=== PATIENT | male | born 2000 | race Two or more races ===

== ENCOUNTER 2024-10-04 16:39 | Emergency (ER) | payer SELFPAY ==
[2024-10-04 16:40] VITALS: BMI 34.4
[2024-10-04 16:54] VITALS: BP 164/98; PULSE 135; RESP 17; TEMP 37.8; O2SAT 96
--- NOTE | 2024-10-04 16:55 | EDNOTE_ITS ---
ED Dizzyness RME/HPI General Chief Complaint: Dizziness Stated Complaint: DIZZINESS, SHAKING, VOMITING Time Seen by Provider: 10/04/24 16:50 Arrival date/time: 10/04/24 16:39 RME / HPI RME / HPI Narrative: DR. ROMERO MAIN ED EVALUATION: 23-year-old male with a past medical history of diabetes mellitus and hypercholesterolemia presents to the Emergency Department accompanied by his mother after becoming dizzy and nauseated while working outside in the sun in the [place]. He had not eaten all day but reports drinking water. Patient states he was not given a break by his employer. Denies chest pain and abdominal pain. Reports some mild trouble breathing. On arrival, he was noted to be tachycardic, dyspneic, and febrile. Related Data Allergies Allergy/AdvReac Type Severity Reaction Status Date / Time No Known Allergies Allergy Verified 10/04/24 16:40 Review of Systems Review of Systems Systems Reviewed: All systems reviewed, normal except as documented Past Medical History Social History SMOKING STATUS: Never smoker SUBSTANCE USE: does not use ALCOHOL: Never Past Medical History Comments PMH COMMENT: diabetes mellitus and hypercholesterolemia ED Exam Narrative Physical exam: Constitutional: Awake, alert, nontoxic, diaphoretic, febrile at 101 orally HEENT: NC, AT, EOMI Neck: Supple CV: tachycardic Lungs: CTAB, no w/r/r, no respiratory distress. Abd: Soft, NT, NT, no HSM noted to palpation Extremities: No deformities, no edema noted Neuro: AAOx3, CN 2-12 GIBL, no acute neuro deficit noted. Skin: Warm, dry, intact Course Course Course Narrative: Patient coming in with what appears to be dehydration and heat exposure. IV fluids ordered as well as labs. Labs reviewed with mild elevation of LFTs as well as CPK. Will sign out patient to Dr. Sen pending completion of fluids and reevaluation as patient was tachycardic in the 130s on arrival. Likely able to discharge home afterwards. Quality Measures none Orders Category Date Time Status Insert IV NOW Care 10/04/24 16:53 Active CBC Stat Lab 10/04/24 17:05 Completed CK [Creatine Kinase] Stat Lab 10/04/24 17:05 Completed CMP [Comprehensive Metabolic Panel] Stat Lab 10/04/24 17:05 Completed Lactate (Lactic Acid) Stat Lab 10/04/24 17:05 Completed Magnesium Stat Lab 10/04/24 17:05 Completed Ondansetron Inj [Zofran Inj] Med 10/04/24 16:54 Discontinued 4 mg IVP X1 ONE Ringers Lactated 1000 ml [Lactated Ringers] 1,000 ml Med 10/04/24 16:53 Discontinued IV 999 mls/hr Ringers Lactated 1000 ml [Lactated Ringers] 1,000 ml Med 10/04/24 17:44 Discontinued IV 999 mls/hr Vital Signs Vital signs: Vital Signs Temperature 100.1 F 10/04/24 16:54 Pulse Rate 135 H 10/04/24 16:54 Respiratory Rate 17 10/04/24 16:54 Blood Pressure 164/98 H 10/04/24 16:54 Pulse Oximetry (%) 96 10/04/24 16:54 Oxygen Delivery Method Room Air 10/04/24 16:54 Dizziness MDM Narrative MDM Narrative:: IKaya am scribing for and in the presence of Dr. Romero. Patient data External records reviewed:: [facility] previous records Clinical information provided by:: patient and family Social determinants that could affect healthcare access:: none Patient has the following chronic illnesses:: diabetes mellitus and hypercholesterolemia How is presenting disease/condition affected by chronic disease/condition?: uneffected by Evaluation data The following diagnostics were reviewed and interpreted by me:: lab results Lab and/or radiology exams considered but not ordered:: none Interpretation Summary: See narrative above. Medications / Prescriptions Medications or Prescriptions considered but not ordered:: none Medication administrations:: Medication Administration History Discontinued Medications Lactated Ringer's (Lactated Ringers) 1,000 mls @ 999 mls/hr IV .Q1H1M ONE Stop: 10/04/24 17:53 Last Infusion: 10/04/24 18:25 Dose: Infused Documented By: Admin: 10/04/24 17:08 Dose: 999 mls/hr Documented By: LARS Lactated Ringer's (Lactated Ringers) 1,000 mls @ 999 mls/hr IV .Q1H1M ONE Stop: 10/04/24 18:44 Last Admin: 10/04/24 17:50 Dose: 999 mls/hr Documented By: LARS Ondansetron HCl (Ondansetron Inj 2 Mg/Ml Inj 2 Ml) 4 mg IVP X1 ONE; Protocol Stop: 10/04/24 16:55 Last Admin: 10/04/24 17:07 Dose: 4 mg Documented By: LARS see above Consultations Consultation(s) initiated? (list below): No Diagnosis Dizziness Differential Diagnosis: other (Heat exhaustion, hypoglycemia, and dehydration.) Most likely diagnosis given after review of the tests above:: Dehydration Heat exposure Admission Indicated Admission indicated?: not indicated Admission Request Was there a request for admission?: No Disposition Plan Disposition Plan: Discharge Discharge Attestation Discharge Attestation: The patient and all family members were given an opportunity to ask questions and understood the discharge instructions. Discharge instructions specifically effects, indications for sooner follow up or return to the emergency department, and the expected course of current diagnosis. Patient condition: Stable Discharge Plan Problem List Clinical Impression: Dehydration, Sinus tachycardia Patient/Caregiver Discharge Instructions Print Language: Azeri
[2024-10-04] MEDS: ONDANSETRON INJ 2 MG/ML INJ 2 ML 4 MG IVP (17:07)
[2024-10-04] MEDS: RINGERS LACTATED 1000 ML 1,000 ML 999 ML IV ×2 (17:08→17:50)
[2024-10-04 17:18] LABS: Basophils # (Auto) 0.0 Thou/mm3 (0.0-0.2); Basophils % (Auto) 0 % (0-2.5); Eosinophils # (Auto) 0.0 Thou/mm3 (0.0-0.5); Eosinophils % (Auto) 0 % (0-10); Hematocrit 44.6 % (41.0-53.0); Hemoglobin 15.6 g/dL (13.5-16.0); Immature Granulocytes Auto 0.04 Thou/mm3 (0.00-0.00); Lactate (Lactic Acid) 1.3 mMol/L (0.4-2.0); Lymphocytes # (Auto) 1.7 Thou/mm3 (1.0-4.8); Lymphocytes % (Auto) 16 % (10-50); Mean Corpuscular HGB Conc 35.0 g/dl (31.0-37.0); Mean Corpuscular Hemoglobin 29.3 pg (25.0-35.0); Mean Corpuscular Volume 84 fL (80-100); Monocytes # (Auto) 0.8 Thou/mm3 (0.0-0.8); Monocytes % (Auto) 7 % (0-12); Neutrophils # (Auto) 8.4 Thou/mm3 (1.8-7.7); Neutrophils % (Auto) 76 % (37-80); Nucleated Red Blood Cell # 0.00 Thou/mm3 (0.00-0.00); Nucleated Red Blood Cell % 0 /100 WBC (0); Platelet Count 299 Thou/mm3 (140-440); RDW Standard Deviation 36.1 fL (35.1-43.9); Red Blood Count 5.33 Miln/mm3 (4.50-5.90); White Blood Count 11.0 Thou/mm3 (3.8-10.6)
[2024-10-04 17:39] LABS: Alanine Aminotransferase 141 U/L (10-49); Albumin, Serum 5.3 gm/dL (3.5-5.0); Albumin/Globulin Ratio 2.0 (1.2-2.2); Alkaline Phosphatase 119 U/L (46-116); Anion Gap 15 (7-16); Aspartate Amino Transferase 76 U/L (0-34); BUN/Creatinine Ratio 10 Ratio (12-20); Bilirubin,Total 0.9 mg/dL (0.3-1.2); Blood Urea Nitrogen 12 mg/dL (9-23); Calcium 10.1 mg/dL (8.3-10.6); Calcium (Corrected) 10.1 mg/dL (8.5-10.1); Carbon Dioxide 20.9 mMol/L (20.0-31.0); Chloride 108 mMol/L (98-107); Creatine Kinase 256 U/L (34-171); Creatinine (Component) 1.2 mg/dL (0.6-1.3); Estimated Creatinine Clearance 120.3 mL/min (>60); Globulin 2.6 gm/dL (2.3-3.5); Glucose 102 mg/dL (74-106); Magnesium 2.0 mg/dL (1.6-2.6); Osmolality,Calculated 286 (275-295); Potassium 3.4 mMol/L (3.4-5.1); Sodium 144 mMol/L (136-145); Total Protein 7.9 gm/dL (5.7-8.2); eGFR > 60 See Note
[2024-10-04 18:33] VITALS: BP 129/67; PULSE 96; RESP 18; TEMP 36.6; O2SAT 99
[2024-10-04 19:00] VITALS: BP 136/75; PULSE 92; RESP 18; TEMP 37; O2SAT 99
--- NOTE | 2024-10-04 19:14 | PD.EDADDENDU ---
Emergency Room Addendum <Angelique Duff - Last Filed: 10/04/24 19:14> Addendum Narrative: 1800: Care assumed from Dr. Argueta (emergency physician). Past medical, surgical, social and family history reviewed. Vitals and home medications reviewed. Results and treatment plan discussed. I will assume the care of the patient at this time and will follow the patient, pending . The following addendum documentation note is intended to reflect any pending information, findings, or radiology results not included in the patient?s initial chart by the previous shift scribe. <Arian Heaton SenDO - Last Filed: 10/04/24 19:26> Addendum Narrative: 1800: Care assumed from Dr. Argueta (emergency physician). Past medical, surgical, social and family history reviewed. Vitals and home medications reviewed. Results and treatment plan discussed. I will assume the care of the patient at this time and will follow the patient, pending . The following addendum documentation note is intended to reflect any pending information, findings, or radiology results not included in the patient?s initial chart by the previous shift scribe. Patient has been hydrated. Heart rate is in the 90s. Patient feels well. Patient will be discharged. It was stressed to the patient to stay hydrated when he has to work outside in the heat.
== END 2024-10-04 19:42 | disposition home or self-care (01) ==
PROVIDERS: Emergency Provider Family Medicine
DX: E86.0 Dehydration (principal); R00.0 Tachycardia, unspecified; E11.9 Type 2 diabetes mellitus without complications; E78.00 Pure hypercholesterolemia, unspecified
CPT/HCPCS: 36415; 80053; 82550; 83605; 83735; 85025; 96361; 96374; 99283; J2405; J7120

== ENCOUNTER 2024-12-20 20:50 | Emergency (ER) | payer MEDICAID, SELFPAY ==
[2024-12-20 20:53] VITALS: BMI 35.9
[2024-12-20 21:13] VITALS: BP 152/92; BP 165/103; PULSE 96; RESP 18; TEMP 36.9; O2SAT 98
--- NOTE | 2024-12-20 21:23 | XR_ITS ---
Examination: CT soft tissue neck, without contrast. 2-D sagittal reconstructions. 2-D coronal reconstructions. 3-D reconstructions. Date and time of exam: December 20, 2024, 2132 hours INDICATIONS: Patient swallowed foreign body 1 hour ago CTDI: vol (mGy): 18.02 DLP: (mGycm): 639 Technique: Multiple 1.25 mm axial sections of the soft tissue neck without intravenous contrast have been obtained. 2-D sagittal and coronal reconstructions have been obtained. 3-D reconstructions have been obtained. Low dose protocols were performed. One or more of the following dose reduction techniques were used; automated exposure control, adjustment of the mA and/or KV according to patient size, use of iterative reconstruction technique. Findings: Maxillary antra are clear Symmetrical nasopharynx oropharynx Normal larynx Symmetrical thyroid lobes There is subtle opacity in the upper thoracic esophagus, axial image 120, which could represent a foreign body No prevertebral soft tissue prominence IMPRESSION: There is subtle density in the upper thoracic esophagus which could represent a foreign body, recommend direct inspection
[2024-12-20 22:09] VITALS: BP 149/91; PULSE 89; RESP 18; TEMP 36.9; O2SAT 99
--- NOTE | 2024-12-20 23:01 | PC.NURSE ---
PT IS ABLE TO DRINK WATER WITH NO VOMITING, PT IS NOT DROOLING, ABLE TO SPEAK FULL SENTENCES, NO C/O PAIN.
[2024-12-20 23:02] VITALS: RESP 14; O2SAT 100
--- NOTE | 2025-03-29 06:09 | EDNOTE_ITS ---
ED Skin Abcess FB-RME/HPI General Chief complaint: General Adult/Misc Complain Stated complaint: SWALLOWED PLASTIC PART OF BALL Time Seen by Provider: 12/20/24 21:10 Arrival date/time: 12/20/24 20:50 This is a case of 25-year-old male with no medical history coming in with a foreign body on the throat patient accidentally swallowed a plastic part of the wall patient has no drooling of saliva patient can speak full sentences only throat pain noted Limitations: no limitations Related Data Allergies Allergy/AdvReac Type Severity Reaction Status Date / Time No Known Allergies Allergy Verified 12/21/24 18:44 Review of Systems Review of Systems Systems Reviewed: All systems reviewed, normal except as documented Past Medical History Past Medical History CARDIAC: Negative Congestive Heart Failure RESPIRATORY: Negative Chronic Obstructive Pulmonary Disease (COPD) GENITOURINARY: Negative Renal Disease ENDOCRINE: Negative Diabetes Mellitus Type 1 or Diabetes Mellitus Type 2 Social History SMOKING STATUS: Never smoker SUBSTANCE USE: does not use ED Exam General Limitations: Present no limitations General appearance: Present alert and in no apparent distress Head Head exam: Present atraumatic Eye Eye exam: Present normal appearance, PERRL and EOMI ENT ENT exam: Present normal exam, normal oropharynx, mucous membranes moist and other (HEENT exam is normal bilateral tonsils was not red no abrasion no blood no swelling no exudate no foreign body noted in the throat patient is before sentences no drooling of saliva no muffled voice) Neck Neck exam: Present normal inspection, full ROM and trachea midline Chest Chest inspection: Present normal inspection and symmetric chest wall rise Respiratory Respiratory exam: Present normal lung sounds bilaterally; Absent respiratory distress, wheezes, stridor, accessory muscle use or prolonged expiratory phase Cardiovascular Cardiovascular exam: Present regular rate, normal rhythm and normal heart sounds; Absent bradycardia, tachycardia, irregular rhythm, systolic murmur or diastolic murmur Abdominal Exam Abdominal exam: Present soft and normal bowel sounds; Absent distention, tenderness, guarding, rebound, rigidity, diminished bowel sounds, hyperactive bowel sounds, hypoactive bowel sounds or organomegaly Extremities Exam Extremities exam: Present normal inspection and full ROM Back Exam Back exam: Present normal inspection and full ROM Neurological Exam Neurological exam: Present alert, oriented X3 and CN II-XII intact Psychiatric Psychiatric exam: Present normal affect and normal mood Skin Skin exam: Present warm, dry, intact and normal color Course Quality Measures none Orders Category Date Time Status CT soft tissue neck wo con Stat Exams 12/20/24 21:23 Completed Vital Signs Vital signs: Vital Signs Temperature 98.4 F 12/20/24 21:13 Pulse Rate 96 12/20/24 21:13 Respiratory Rate 18 12/20/24 21:13 Blood Pressure 165/103 H 12/20/24 21:13 Pulse Oximetry (%) 98 12/20/24 21:13 Oxygen Delivery Method Room Air 12/20/24 21:13 Vital signs stable Skin / Abscess / Foreign Body MDM Narrative MDM Narrative:: Patient was discharged with comfortable condition walking with stable gait. Patient verbalized no further complains explained diagnosis and answered patient question. Patient is comfortable with the proposed management plan including the need to follow up with his/her primary care physician and any specialist if applicable Discussed patient for any urgent condition or worsening sx, He/She needed to go to emergency room immediately or call 911. Patient acknowledge the responsibility to follow up as instructed and to monitor her/his symptoms. For any persistence of the symptoms for more than 3-5 days return precaution advised. Discussed the result of the test and was given printed discharge instru ction Patient data External records reviewed:: [facility] previous records Clinical information provided by:: patient Social determinants that could affect healthcare access:: none Patient has the following chronic illnesses:: none How is presenting disease/condition affected by chronic disease/condition?: no chronic disease Evaluation data The following diagnostics were reviewed and interpreted by me:: radiology exam(s) Lab and/or radiology exams considered but not ordered:: reviewed Interpretation Summary: reeviwed Medications / Prescriptions Medications or Prescriptions considered but not ordered:: none Medication administrations:: none Consultations Consultation(s) initiated? (list below): No Diagnosis Skin/Abscess Differential Diagnosis: other (possible foreign body throat) Most likely diagnosis given after review of the tests above:: possible foreoign body throat Admission Indicated Admission indicated?: not indicated Explain why admission is indicated or not indicated:: not indicated Admission Request Was there a request for admission?: No Admission Attestation Admission request attestation: not indicated Disposition Plan Disposition Plan: Discharge Discharge Attestation Discharge Attestation: The patient and all family members were given an opportunity to ask questions and understood the discharge instructions. Discharge instructions specifically effects, indications for sooner follow up or return to the emergency department, and the expected course of current diagnosis. Patient condition: Stable Discharge Plan Plan Patient Disposition: HOME (Self Care) Patient condition on transfer: Stable Prescriptions/Referrals Referrals: Magda Grande FNP-C [Primary Care Provider] - In 1 week Problem List Clinical Impression: Esophageal foreign body Patient/Caregiver Discharge Instructions Education Materials: ED Swallowed Foreign Body (Adult) Additional Instructions: It is very important to return in the emergency room tomorrow around 8 PM for repeat chest x-ray and KUB as instructed by Dr. Jean and GI specialist follow- up with your primary care physician in 2 days for reevaluation for any worsening symptoms or any emergent concerns such as unable to swallow your saliva or water or unable to swallow solid food drooling of saliva shortness of breath etc. return to the emergency room immediately or call 911 Print Language: [place] Stand Alone Forms: Thi Award Info., Patient Portal Info Letter REINA/PHANI Supervising Physician REINA/PHANI Supervising Physician: Dr. Sen
== END 2024-12-20 23:03 | disposition home or self-care (01) ==
PROVIDERS: Emergency Provider Emergency Medicine
DX: T18.108A Unspecified foreign body in esophagus causing other injury, initial encounter (principal); W44.8XXA Other foreign body entering into or through a natural orifice, initial encounter
CPT/HCPCS: 70490; 99282

== ENCOUNTER 2024-12-21 18:42 | Emergency (ER) | payer MEDICAID, SELFPAY ==
[2024-12-21 18:42] VITALS: BMI 35.9
[2024-12-21 19:15] VITALS: BP 166/93; PULSE 83; RESP 16; TEMP 36.8; O2SAT 99
--- NOTE | 2024-12-21 19:20 | XR_ITS ---
Examination: Abdomen AP single view Technique: AP portable supine abdomen, single view Exam date and time: December 21, 2024, 1933 hours INDICATIONS: Ingestion foreign body yesterday. FINDINGS: No opaque foreign body. Nonobstructive bowel gas pattern. No free air. The osseous structures are intact IMPRESSION: No opaque foreign body
--- NOTE | 2024-12-21 19:20 | XR_ITS ---
EXAMINATION: PA chest single view TECHNIQUE: Upright PA chest single view Date and time: December 21, 2024, 1934 hours, comparison June 09, 2010 INDICATIONS: Ingestion foreign body yesterday FINDINGS: Normal heart size No opaque foreign body depicted. The lungs are clear. The osseous structures are intact IMPRESSION: No foreign body depicted
--- NOTE | 2024-12-21 20:29 | EDNOTE_ITS ---
ED Skin Abcess FB-RME/HPI General Chief complaint: General Adult/Misc Complain Stated complaint: TOLD TO COME BACK TODAY FOR chest xray and kub Time Seen by Provider: 12/21/24 18:49 Arrival date/time: 12/21/24 18:42 This is a case of 24-year-old male with no medical history came in in the emergency room for follow-up he saw this patient yesterday for foreign body on the esophagus patient accidentally swallowed a piece of plastic ball where CT scan was performed on the neck and noted that the patient have foreign body on the upper esophagus I spoke to the GI specialist yesterday Dr. Jean and ordered to observe patient for 24 hours and repeat chest x-ray and KUB patient was able to swallow solid and liquid with no difficulty patient verbalized resolve of the symptoms no choking sensation Limitations: no limitations Related Data Allergies Allergy/AdvReac Type Severity Reaction Status Date / Time No Known Allergies Allergy Verified 12/21/24 18:44 Review of Systems Review of Systems Systems Reviewed: All systems reviewed, normal except as documented Constitutional Constitutional: Reports system reviewed and no additional complaints, except as documented, Reports as per HPI and Denies headache(s) ENT Ears, Nose, Mouth, and Throat: Reports system reviewed and no additional complaints, except as documented, Reports as per HPI, Denies abnormal hearing, Denies bleeding gums, Denies change in voice, Denies dental pain, Denies dis equilibrium, Denies dizziness, Denies dry mouth, Denies dysphagia, Denies ear discharge, Denies otalgia, Denies epistaxis, Denies facial pain, Denies halitosis, Denies headache(s), Denies hearing loss, Denies hoarseness, Denies lip swelling, Denies mouth lesions, Denies mouth pain, Denies nasal congestion, Denies nasal discharge, Denies nasal obstruction, Denies nasal trauma, Denies neck mass, Denies neck pain, Denies nose pain, Denies odynophagia, Denies post nasal drip, Denies sinus pain, Denies sinus pressure, Denies sore throat, Denies throat swelling, Denies tinnitus, Denies tongue swelling and Denies vertigo Cardiovascular Cardiovascular: Reports system reviewed and no additional complaints, except as documented and Reports as per HPI Respiratory Respiratory: Reports system reviewed and no additional complaints, except as documented and Reports as per HPI Gastrointestinal Gastrointestinal: Reports system reviewed and no additional complaints, except as documented, Reports as per HPI, Denies dysphagia and Denies odynophagia Musculoskeletal Musculoskeletal: Reports system reviewed and no additional complaints, except as documented, Reports as per HPI and Denies neck pain Neurologic Neurologic: Reports system reviewed and no additional complaints, except as documented, Reports as per HPI, Denies abnormal hearing, Denies disequilibrium, Denies dizziness, Denies headache(s) and Denies vertigo Allergic/Immunologic Allergic/Immunologic: Denies lip swelling, Denies throat swelling and Denies tongue swelling Past Medical History Past Medical History CARDIAC: Negative Congestive Heart Failure RESPIRATORY: Negative Chronic Obstructive Pulmonary Disease (COPD) GENITOURINARY: Negative Renal Disease ENDOCRINE: Negative Diabetes Mellitus Type 1 or Diabetes Mellitus Type 2 Social History SMOKING STATUS: Never smoker SUBSTANCE USE: does not use ED Exam General Limitations: Present no limitations General appearance: Present alert, in no apparent distress and other (Patient is awake alert oriented not in distress nontoxic looking well-hydrated well- nourished) Head Head exam: Present atraumatic, normocephalic and normal inspection Eye Eye exam: Present normal appearance, PERRL and EOMI ENT ENT exam: Present normal exam, normal oropharynx, mucous membranes moist and other (HEENT exam is normal bilateral tonsils were not swollen no exudate no redness pharynx is normal no drooling of saliva patient is able to swallow his saliva with no difficulty no drooling of saliva patient can speak full sentences) Neck Neck exam: Present normal inspection, full ROM and trachea midline; Absent tenderness, meningismus, lymphadenopathy or thyromegaly Chest Chest inspection: Present normal inspection and symmetric chest wall rise; Absent tenderness Respiratory Respiratory exam: Present normal lung sounds bilaterally; Absent respiratory distress, wheezes, stridor, accessory muscle use or prolonged expiratory phase Cardiovascular Cardiovascular exam: Present regular rate, normal rhythm and normal heart sounds; Absent bradycardia, tachycardia, irregular rhythm, systolic murmur or diastolic murmur Abdominal Exam Abdominal exam: Present soft and normal bowel sounds; Absent distention, tenderness, guarding, rebound, rigidity, diminished bowel sounds, hyperactive bowel sounds, hypoactive bowel sounds or organomegaly Extremities Exam Extremities exam: Present normal inspection and full ROM Back Exam Back exam: Present normal inspection and full ROM Neurological Exam Neurological exam: Present alert, oriented X3, CN II-XII intact, normal gait and reflexes normal; Absent motor sensory deficit Psychiatric Psychiatric exam: Present normal affect and normal mood Skin Skin exam: Present warm, dry, intact and normal color Course Quality Measures none Orders Category Date Time Status KUB [XR abdomen 1V] Stat Exams 12/21/24 19:20 Completed XR chest 1V Stat Exams 12/21/24 19:20 Completed Vital Signs Vital signs: Vital Signs Temperature 98.3 F 12/21/24 19:15 Pulse Rate 83 12/21/24 19:15 Respiratory Rate 16 12/21/24 19:15 Blood Pressure 166/93 H 12/21/24 19:15 Pulse Oximetry (%) 99 12/21/24 19:15 Oxygen Delivery Method Room Air 12/21/24 19:15 Oxygen saturation is 99% in room air Skin / Abscess / Foreign Body MDM Narrative MDM Narrative:: This is a case of 24-year-old male with no medical history came in in the [facility] room for follow-up he saw this patient yesterday for foreign body on the esophagus patient accidentally swallowed a piece of plastic ball where CT scan was performed on the neck and noted that the patient have foreign body on the upper esophagus I spoke to the GI specialist yesterday Dr. Jean and ordered to observe patient for 24 hours and repeat chest x-ray and KUB patient was able to swallow solid and liquid with no difficulty patient verbalized resolve of the symptoms no choking sensation physical examination patient is awake alert oriented not in distress nontoxic looking well-hydrated well-nourished HEENT exam is normal bilateral tonsils were not swelling no redness no muffled voice no drooling of saliva patient can speak full sentences patient is able to swallow his saliva with no difficulty lung sounds is clear no crackles no rales no retraction no stridor abdominal exam is benign nonsurgical no guarding no rebound no rigidity no tenderness patient verbalized that he had a big bowel movement twice today chest x-ray and KUB was performed as instructed by Dr. Jean and noted no foreign body at this point patient symptoms was resolved patient will follow-up with PCP in 2 days for reevaluation and for any worsening symptoms or recurrent of the symptoms or any emergent concern return precaution in the ER was advised Patient was discharged with comfortable condition walking with stable gait. Patient verbalized no further complains explained diagnosis and answered patient question. Patient is comfortable with the proposed management plan including the need to follow up with his/her primary care physician and any specialist if applicable Discussed patient for any urgent condition or worsening sx, He/She needed to go to emergency room immediately or call 911. Patient acknowledge the responsibility to follow up as instructed and to monitor her/his symptoms. For any persistence of the symptoms for more than 3-5 days return precaution advised. Discussed the result of the test and was given printed discharge instruction Patient data External records reviewed:: [facility] [facility] previous records Clinical information provided by:: patient Social determinants that could affect healthcare access:: none Patient has the following chronic illnesses:: None How is presenting disease/condition affected by chronic disease/condition?: no chronic disease Evaluation data The following diagnostics were reviewed and interpreted by me:: radiology exam(s) Lab and/or radiology exams considered but not ordered:: Reviewed Interpretation Summary: Reviewed Medications / Prescriptions Medications or Prescriptions considered but not ordered:: Given Medication administrations:: Given Consultations Consultation(s) initiated? (list below): No Diagnosis Skin/Abscess Differential Diagnosis: other (Foreign body resolved) Most likely diagnosis given after review of the tests above:: Esophageal foreign body resolved Admission Indicated Admission indicated?: not indicated Explain why admission is indicated or not indicated:: Not indicated Admission Request Was there a request for admission?: No Admission Attestation Admission request attestation: Not indicated Disposition Plan Disposition Plan: Discharge Discharge Attestation Discharge Attestation: The patient and all family members were given an opportunity to ask questions and understood the discharge instructions. Discharge instructions specifically effects, indications for sooner follow up or return to the emergency department, and the expected course of current diagnosis. Patient condition: Stable Discharge Plan Plan Patient Disposition: HOME (Self Care) Patient condition on transfer: Stable Prescriptions/Referrals Referrals: Magda Grande FNP-C [Primary Care Provider] - In 1 week Problem List Clinical Impression: Esophageal foreign body Patient/Caregiver Discharge Instructions Education Materials: ED Swallowed Foreign Body (Adult) Additional Instructions: Follow-up with your primary care physician in 2 days for reevaluation recurrence worsening symptoms or any emergent concern return to the emergency room immediately or call 911 Print Language: Maltese Stand Alone Forms: Thi Award Info., Patient Portal Info Letter REINA/PHANI Supervising Physician REINA/PHANI Supervising Physician: Dr. Martell
== END 2024-12-21 20:32 | disposition home or self-care (01) ==
PROVIDERS: Emergency Provider Emergency Medicine
DX: T18.108A Unspecified foreign body in esophagus causing other injury, initial encounter (principal); W44.9XXA Unspecified foreign body entering into or through a natural orifice, initial encounter
CPT/HCPCS: 71045; 74018; 99282